=== PATIENT | female | born 1995 | race Caucasian/White ===

== ENCOUNTER → 2017-09-15 | Outpatient (REF) ==
--- NOTE | 2017-09-15 13:37 | Diagnostic Imaging Report ---
PA and lateral views of the chest Indication: Positive TB skin test Findings: The lungs are clear. The heart size is normal. There is no effusion or pneumothorax The mediastinum and jacinta appear unremarkable. Impression: Unremarkable study. Dictated by: Dictated on workstation # [id number]
== END | disposition home or self-care (01) ==
LOC: OCC 13:07
PROVIDERS: ATTEND Nurse Practitioner Family
CPT/HCPCS: 71020

== ENCOUNTER → 2019-06-15 | Outpatient (CLI) | payer BC ==
[~2019-06-15] MED LIST: ASPI-999 PO; CHOL20002 PO; CYCL1DRO OP; DOCU-143 PO; FERR325T18 PO; FLUT9.9S NS; IBUP-1773 PO; LORA10TA76 PO; OXYC1TAB87 PO; PREN1TAB19 PO
--- NOTE | 2019-06-15 10:45 | Diagnostic Imaging Report ---
PROCEDURE: US Gallbladder. TECHNIQUE: Multiple real-time grayscale images were obtained over the right upper quadrant in various projections. INDICATION: Abdominal pain. COMPARISON: None available. FINDINGS: Liver: Normal in size and echotexture. No focal lesion is seen. Appropriate hepatopetal flow is demonstrated in the main portal vein. Gallbladder: Normal. No stones or gallbladder wall thickening. No pericholecystic fluid. Negative sonographic Mccrary's sign. Biliary Tree: No intrahepatic or extrahepatic bile duct dilation is identified. The proximal common duct measures 0.2 cm in diameter. Pancreas: No abnormality in the visualized portions of the pancreas. Right kidney: Normal parenchymal echotexture and thickness. No hydronephrosis, stone or mass. IMPRESSION: Normal right upper quadrant abdominal ultrasound. Dictated by: Dictated on workstation # [id number]
== END ==
LOC: RAD 09:34
PROVIDERS: ATTEND Family Medicine
DX: R10.9 Unspecified abdominal pain (principal)
CPT/HCPCS: 76705

== ENCOUNTER → 2019-06-28 | Outpatient (CLI) | payer BC ==
--- NOTE | 2019-06-28 15:37 | Diagnostic Imaging Report ---
CLINICAL INDICATION: Patient with persistent abdominal pain and stool changes. COMPARISON: Gallbladder ultrasound dated 06/15/2019. PROCEDURE: The patient was administered 4.94 millicuries of technetium-99m Choletec. After 60 minutes of the images, one can of Ensure was given to drink followed by another 60 minutes of imaging. A nuclear medicine hepatobiliary scan with ejection fraction was performed. FINDINGS: There is prompt uptake and excretion of radiotracer by the liver. Activity is visible in the gallbladder by 10 minutes and the small bowel by 10 minutes. Ejection fraction of the gallbladder is calculated at 72% (normal >33%). The gallbladder visibly empties on the scans following the ingestion of Ensure. IMPRESSION: Normal hepatobiliary scan with normal gallbladder ejection fraction. Dictated by: Dictated on workstation # [id number]
== END ==
LOC: CARD 11:33
PROVIDERS: ATTEND Nurse Practitioner Family
DX: R10.9 Unspecified abdominal pain (principal)
CPT/HCPCS: 78227

== ENCOUNTER → 2020-10-29 | Outpatient (CLI) | payer BC, OTHER ==
--- NOTE | 2020-10-29 12:42 | Diagnostic Imaging Report ---
INDICATION: survey. TECHNIQUE: Multiple Real-time grayscale images were obtained over the gravid uterus. COMPARISON: There are no prior studies available for comparison. FINDINGS: There is a single live fetus in transverse presentation. heart motion was noted and a rate of 135 BPM was recorded. There were no abnormalities identified but the four-chamber heart view was less than optimal. A short-term (4-6 week) followup exam would be recommended for further evaluation of the heart. The growth parameters are fairly uniform. The placenta is anterior and there is a marginal previa. The position of the previa could also be reevaluated on the followup exam. The amniotic fluid volume is within normal limits. The cervix measures 9.5 cm in length. IMPRESSION: 1. There is a single live fetus of approximately 20 weeks gestation +/- 1.5 weeks. The EDC is 03/18/2021. 2. There were no abnormalities identified but the four-chamber heart view was less than optimal. A short-term followup exam would be recommended for further evaluation of the heart and for the position of the marginal anterior placenta previa. 3. The growth parameters are fairly uniform. Biometrical measurements are as follows: Biparietal 4.33 cm, age 19 weeks 1 days. Head circumference 16.61 cm, age 19 weeks 3 days. Abdominal circumference 15.06 cm, age 20 weeks 3 days. Femur length 3.38 cm, age 20 weeks 5 days. Sonographic estimate age: 20 weeks 0 days. Sonographic estimated date of delivery: 03/18/2021. Estimated Weight: 343 gm (+/- 50 gm). LMP percentile: 37%. heart rate: 135 beats per minute. number: 1 of 1. Dictated by: Dictated on workstation # [id number]
== END ==
LOC: RAD 09:54
PROVIDERS: ATTEND Obstetrics & Gynecology
DX: Z34.92 Encounter for supervision of normal pregnancy, unspecified, second trimester (principal); Z3A.20 20 weeks gestation of pregnancy
CPT/HCPCS: 76805

== ENCOUNTER 2021-03-05 06:48 | Outpatient (CLI) | payer OTHER ==
[~2021-03-05] VITALS: Ht 167.7 cm; Wt 126.4 kg
[2021-03-05] MEDS ORDERED: LORA10TA76 PO (11:40)
[2021-03-05] MEDS ORDERED: ASPI-999 PO (11:40)
== END 2021-03-05 11:40 | disposition home or self-care (01) ==
LOC: PREOP 06:48
PROVIDERS: ATTEND Obstetrics & Gynecology
DX: Z01.818 Encounter for other preprocedural examination (principal)

== ENCOUNTER 2021-03-09 06:09 | Inpatient (IN) | payer OTHER ==
[2021-03-09] VITALS (9 sets, daily range): BP systolic 123–146; BP diastolic 68–87
[~2021-03-09] VITALS: Ht 67 cm; Wt 126.4 kg
[~2021-03-09 06:09] MED LIST changes: +CITRIC ACID/SOB CIT (BICITRA) 30 ML UDC ONE; +FAMOTIDINE 20MG/2ML IV (PEPCID) ONE; +METOCLOPRAMIDE INJ 10 MG/2 ML (REGLAN) ONE
[2021-03-09] MEDS ORDERED: FAMOTIDINE 20MG/2ML IV (PEPCID) IV ONE (06:15)
[2021-03-09] MEDS ORDERED: METOCLOPRAMIDE INJ 10 MG/2 ML (REGLAN) IV ONE (06:15)
[2021-03-09] MEDS ORDERED: CITRIC ACID/SOB CIT (BICITRA) 30 ML UDC PO ONE (06:15)
[2021-03-09] MEDS ORDERED: ceFAZolin 2 GM IV Premixed 50 ML IV ONE (06:15)
[2021-03-09] MEDS ORDERED: LACTATED RINGERS 1,000 ML IV PRN ×2 (06:15)
[2021-03-09] MEDS ORDERED: KETOROLAC 30 MG/ML VIAL ONE (06:50)
[2021-03-09] MEDS ORDERED: fentaNYL INJ 100 MCG/2 ML AMP ONE (06:50)
[2021-03-09] MEDS ORDERED: OXYTOCIN PRE-MIX DRIP 1,000 ML IV ONE (06:50)
[2021-03-09] MEDS ORDERED: BUPIVACAINE 0.25% 30 ML (SENSORCAINE) VIAL ONE (06:50)
[2021-03-09] MEDS ORDERED: ONDANSETRON 4 MG/2 ML (SDV) Z0FRAN ONE (06:50)
[2021-03-09 07:05] LABS: BASOPHILS % (AUTO) 0 % (0-10); EOSINOPHILS # (AUTO) 0.1 10^3/uL (0.0-0.3); EOSINOPHILS % (AUTO) 1 % (0-10); HEMATOCRIT 39 % (35-52); HEMOGLOBIN 13.5 g/dL (11.5-16.0); LYMPHOCYTES # (AUTO) 2.2 10^3/uL (1.0-4.0); LYMPHOCYTES % (AUTO) 31 % (12-44); MEAN CORPUSCULAR HEMOGLOBIN 33 pg (25-34); MEAN CORPUSCULAR HGB CONC 34 g/dL (32-36); MEAN CORPUSCULAR VOLUME 98 fL (80-99); MEAN PLATELET VOLUME 12.2 fL (9.0-12.2); MONOCYTES # (AUTO) 0.4 10^3/uL (0.0-1.0); MONOCYTES % (AUTO) 5 % (0-12); NEUTROPHILS # (AUTO) 4.5 10^3/uL (1.8-7.8); NEUTROPHILS % (AUTO) 62 % (42-75); PLATELET COUNT 162 10^3/uL (130-400); WHITE BLOOD COUNT 7.2 10^3/uL (4.3-11.0)
--- NOTE | 2021-03-09 07:25 | History & Physical-OB ---
OB - Chief Complaint & HPI Date/Time Date of Admission: Date of Admission: March 09, 2021 at 06:09 Date seen by a Provider: March 09, 2021 Time Seen by a Provider: 07:15 Chief Complaint/History OB-Reason for Admission/Chief: Section Hx : 2 Hx Para: 1 Expected Date of Delivery: March 15, 2021 Gestational Age in Weeks: 39 History of Labs A pos Antibody neg RI RPR NR HBsAg NR HIV NR GC neg GBS pos Allergies and Home Medications Allergies Coded Allergies: No Known Drug Allergies (Unverified , 11/07/17) Home Medications Aspirin 81 Mg Tab.chew, 81 MG PO DAILY, (Reported) Last Action: Reviewed Loratadine 10 Mg Tablet, 10 MG PO DAILY, (Reported) Last Action: Reviewed Vit/Iron Fumarate/FA 1 Each Tablet, 1 EACH PO DAILY, (Reported) Last Action: Reviewed Patient Home Medication List Home Medication List Reviewed: Yes OB - History Hx of Present Care: Yes Ultrasounds: Normal mid trimester US Obstetrical Complications: None Medical Complications: None Delivery History Adverse Rxn to Tranfusion: No Patient Past Medical History see above Immunizations Hepatitis A: Yes Hepatitis B: Yes Tetanus Booster (TDap): Less than 5yrs Date of Influenza Vaccine: Jul 17, 2020 OB - Admission Exam Physical Exam Vitals: Vital Signs 03/09/21 06:56 Temp 36.3 Pulse 66 Resp 18 Pulse Ox 98 O2 Delivery Room Air HEENT: NCAT Lungs: Clear Abdomen: Gravid Extremities: Normal Reflexes: Normal Heart Rate: 130's Accelerations: Accelerations Present Decelerations: No Decelerations Short Term Variability: Present Entry Table Operator Variability: Average (6-25) Contractions on Admission: < 5 Minutes Apart Intensity: Mild Labs Laboratory Tests Test 03/09/21 06:40 Range/Units White Blood Count 7.2 4.3-11.0 10^3/uL Red Blood Count 4.04 3.80-5.11 10^6/uL Hemoglobin 13.5 11.5-16.0 g/dL Hematocrit 39 35-52 % Mean Corpuscular Volume 98 80-99 fL Mean Corpuscular Hemoglobin 33 25-34 pg Mean Corpuscular Hemoglobin Concent 34 32-36 g/dL Red Cell Distribution Width 12.1 10.0-14.5 % Platelet Count 162 130-400 10^3/uL Mean Platelet Volume 12.2 9.0-12.2 fL Immature Granulocyte % (Auto) 0 % Neutrophils (%) (Auto) 62 42-75 % Lymphocytes (%) (Auto) 31 12-44 % Monocytes (%) (Auto) 5 0-12 % Eosinophils (%) (Auto) 1 0-10 % Basophils (%) (Auto) 0 0-10 % Neutrophils # (Auto) 4.5 1.8-7.8 10^3/uL Lymphocytes # (Auto) 2.2 1.0-4.0 10^3/uL Monocytes # (Auto) 0.4 0.0-1.0 10^3/uL Eosinophils # (Auto) 0.1 0.0-0.3 10^3/uL Basophils # (Auto) 0.0 0.0-0.1 10^3/uL Immature Granulocyte # (Auto) 0.0 0.0-0.1 10^3/uL OB - Assessment/Plan/Diagnosis Assessment Assessment: section Admission Dx 25 yo @ 39.1 Previous GBS pos Admission Status: Inpatient Order (span 2 midnights) Reason for Inpatient Admission: 39 week repeat Plan Plan: Section JOSÉ MIGUEL REID DO March 09, 2021 07:24
--- NOTE | 2021-03-09 07:27 | Discharge Inst-Women's Service ---
Discharge Inst-Women's Serv Depart Medication/Instructions New, Converted or Re-Newed RX: RX on Chart Final Diagnosis POD 2 RLTCS Problems Reviewed?: Yes Consults/Follow Up Additional Follow Up: Yes Orders/Referrals Dr. Ryan in 7-10 days for incision check, and in 6 weeks Activity Activity: Activity as Tolerated Driving Instructions: No Driving for 1 Week NO SMOKING: NO SMOKING Nothing Inside Vagina: No Douching, No [place], No Tampons Diet Discharge Diet: No Restrictions Symptoms to Report to : Bleeding Excessive, Pain Increased, Fever Over 101 Degrees F, Vaginal Bleeding Increase, Questions/Concerns For Any Problems or Questions: Contact Your Physician Skin/Wound Care Infection Signs and Symptoms: Increased Redness, Foul Odor of Wound, Increased Drainage, Skin Itchy or Has a Rash, Increased Swelling, Temperature Above 101 F Operative Area Clean and Dry: Keep Incision Clean/Dry Stitches/Mannie/Dermabond: Dermabond, Care of Stitches Bathing Instructions: JOSÉ MIGUEL Wilson DO March 09, 2021 07:27
[2021-03-09] MEDS ORDERED: ACHD5005 PO (07:28)
[2021-03-09] MEDS ORDERED: DCS100C PO (07:28)
[2021-03-09] MEDS ORDERED: IBUP-844 PO (07:28)
[2021-03-09] MEDS ORDERED: ONDANSETRON 4 MG/2 ML (SDV) Z0FRAN IVP PRN ×2 (07:30→09:15)
[2021-03-09] MEDS ORDERED: MEASLES,MUMPS,RUBELLA 1 EA INJ SC SCH (07:30)
[2021-03-09] MEDS ORDERED: TETANUS,DIPTH,PERTUSS P/F (BOOSTRIX) 0.5 ML VIAL IM SCH (07:30)
[2021-03-09] MEDS ORDERED: HYDROcodone/APAP 5 MG/325 MG (LORTAB) TAB PO PRN (07:30)
[2021-03-09] MEDS ORDERED: GLYCOPYRROLATE 0.2 MG/ML (ROBINUL) 2 ML VIAL ONE (07:33)
[2021-03-09] MEDS ORDERED: PHENYLEPHRINE 100 MCG/ML 10 ML (ANESTHESIA) SYR ONE (07:34)
[2021-03-09] MEDS: KETOROLAC 30 MG/ML VIAL IV SCH ×3 (08:28→20:53)
[2021-03-09] MEDS: OXYTOCIN PRE-MIX DRIP 500 ML IV SCH ×2 (08:30→11:19)
[2021-03-09] MEDS ORDERED: diphenhydrAMINE 50 MG/ML INJ (BENADRYL) IV PRN (09:15)
[2021-03-09] MEDS ORDERED: METOCLOPRAMIDE INJ 10 MG/2 ML (REGLAN) IV PRN (09:15)
[2021-03-09] MEDS ORDERED: ONDANSETRON 4 MG/2 ML (SDV) Z0FRAN IV PRN (09:15)
[2021-03-09] MEDS ORDERED: PROMETHAZINE INJ 25 MG/ML (PHENERGAN) AMP IVP ONE (09:15)
[2021-03-09] MEDS ORDERED: morphine INJ 10 MG/ML 1ML (SYR OR VIAL) IVP ONE (09:15)
[2021-03-09] MEDS ORDERED: NALOXONE 0.4 MG/ML 1 ML (NARCAN) VIAL IV PRN ×2 (09:15)
--- NOTE | 2021-03-09 13:35 | OPERATIVE REPORT ---
DATE OF SERVICE: PREOPERATIVE DIAGNOSES: 1. A 25-year-old G2, P1 at 39 weeks gestation. 2. Previous section. 3. GBS positive. POSTOPERATIVE DIAGNOSES: 1. A 25-year-old G2, P1 at 39 weeks gestation. 2. Previous section. 3. GBS positive. PROCEDURE: Repeat low transverse section. SURGEON: Robert Reid DO TELEPHONE SWITCHBOARD OPERATOR: Sabrina Fletcher DNP, was necessary for manipulation and retraction throughout the procedure. ANESTHESIA: Spinal. ESTIMATED BLOOD LOSS: 500 mL. URINE OUTPUT: 50 mL clear at the end of the procedure. FLUIDS: 1700 mL lactated Ringer's solution. FINDINGS: A live female weighing 7 pounds 8 ounces, Apgars of 8 and 9. Grossly normal appearing uterus, bilateral fallopian tubes and ovaries. SPECIMEN SENT: None. INDICATIONS FOR PROCEDURE: This 25-year-old female is a patient, who had sought care in my office that had been uncomplicated with the exception of gestational hypertension with the first . She was started on baby aspirin throughout the . We planned for repeat at 39 weeks. Risks of procedure were discussed with the patient in detail including risk of bleeding, infection, damage to surrounding structures including, but not limited to bowel, bladder, ureter, kidneys, possible need for reoperation, postoperative complications that may occur, recovery timeframe, risk from anesthesia and even . After everything was discussed with the patient in detail, consent was obtained in the preoperative area and the patient was taken to the operating room. OPERATIVE REPORT IN DETAIL: Once in the operating room, spinal analgesia was found to be adequate, placed in supine position with leftward tilt, prepped and draped in normal sterile fashion. Timeout was performed and anesthesia was tested. I then make a Pfannenstiel skin incision through the previously existing scar using knife and carried down to underlying fascia using Bovie cautery. Superior aspect of fascial incision was then grasped with Gavin clamps, tented up and dissected off the underlying rectus muscle. Inferior aspect of the fascial incision was then grasped with Gavin clamps, tented up and dissected off the underlying rectus muscles. Rectus muscles were dissected down the midline using [place] scissors, which exposed the peritoneum, which I entered bluntly and extended using blunt traction. Boogie ring retractor was placed in the peritoneal incision, which offers excellent lateral sidewall retraction. I identified the lower uterine segment, which was found to be thinned out and make a low transverse incision to the vesicouterine peritoneum and bluntly dissected off the lower uterine segment, creating a bladder flap. I then proceeded with myotomy until membranes were visualized, at which point I extended the uterine incision laterally and superiorly using bandage scissors. Amniotomy was performed in the process of doing this, clear fluid was noted. was found in the complete breech presentation and feet were delivered through the incision up to the buttocks, the upper torso was then delivered and the was placed in the downward facing position where the arms were swept across the chest, delivered the arms and then elevating the infant's body. I am able to deliver the infant's head by flexion and through the incision. The nares and oropharynx were bulb suctioned. The was then brought to the operative field, where the cord was doubly clamped and cut and infant handed off to waiting nurses in attendance. Cord blood was collected. Three-vessel cord with intact placenta was delivered spontaneously thereafter. IV Pitocin was initiated to facilitate uterine contraction. Uterine fundus confirmed by manual massage. Uterus was then exteriorized and cleared of all endometrial clots and debris. I then proceeded with closing the uterine incision using 0 Vicryl suture in running locked fashion. Second layer of imbricating 0 Monocryl was placed. Excellent hemostasis was noted after doing this. I then placed the uterus back in the pelvis, copiously irrigated the pelvis using normal saline. There was no active bleeding noted from any of my dissection planes. I removed the Boogie ring retractor and placed Interceed antiadhesive over my low transverse incision to prevent postoperative adhesion formation. I then proceeded with closing the peritoneum using 3-0 Vicryl suture in running fashion. Rectus muscle reapproximated using 3-0 Vicryl suture in interrupted fashion. The fascia was reapproximated using 0 Vicryl suture in running fashion. Subcutaneous tissue was reapproximated using 3-0 plain interrupted subcutaneous stitch and the skin reapproximated using 4-0 Monocryl running subcuticular. Dermabond was applied to incision and sterile dressing with adhesive white tape. Two grams of Ancef given preoperatively for infection prophylaxis. Job ID: [id number] DocumentID: [id number] Dictated Date: 03/09/2021 08:43:17 Opener Tender Date: 03/09/2021 13:35:39 Dictated By: ROBERT REID DO
[2021-03-09] MEDS ORDERED: CATHETER FLUSH 10 ML SYR IV SCH (14:00)
[2021-03-09] MEDS: ACETAMINOPHEN 500 MG TAB (TYLENOL) PO PRN (18:28)
[2021-03-09] MEDS: DOCUSATE SODIUM 100 MG (COLACE) CAP PO SCH (20:53)
[2021-03-10] MEDS: ACETAMINOPHEN 500 MG TAB (TYLENOL) PO PRN ×2 (00:03→05:48)
[2021-03-10 01:19] VITALS: BP 136/64
[2021-03-10] MEDS: KETOROLAC 30 MG/ML VIAL IV SCH (03:00)
[2021-03-10 05:51] VITALS: BP 137/77
[2021-03-10 06:02] LABS: BASOPHILS % (AUTO) 0 % (0-10); EOSINOPHILS # (AUTO) 0.1 10^3/uL (0.0-0.3); EOSINOPHILS % (AUTO) 1 % (0-10); HEMATOCRIT 30 % (35-52); HEMOGLOBIN 10.1 g/dL (11.5-16.0); LYMPHOCYTES # (AUTO) 1.6 10^3/uL (1.0-4.0); LYMPHOCYTES % (AUTO) 17 % (12-44); MEAN CORPUSCULAR HEMOGLOBIN 33 pg (25-34); MEAN CORPUSCULAR HGB CONC 34 g/dL (32-36); MEAN CORPUSCULAR VOLUME 97 fL (80-99); MEAN PLATELET VOLUME 11.8 fL (9.0-12.2); MONOCYTES # (AUTO) 0.3 10^3/uL (0.0-1.0); MONOCYTES % (AUTO) 4 % (0-12); NEUTROPHILS # (AUTO) 7.6 10^3/uL (1.8-7.8); NEUTROPHILS % (AUTO) 78 % (42-75); PLATELET COUNT 135 10^3/uL (130-400); WHITE BLOOD COUNT 9.7 10^3/uL (4.3-11.0)
[2021-03-10] MEDS ORDERED: IBUPROFEN 600 MG (MOTRIN) TAB PO ONE ×2 (07:38→14:42)
[2021-03-10 08:00] VITALS: BP 132/79
--- NOTE | 2021-03-10 08:22 | Postpartum Progress Note ---
Note Note Day # 1 Subjective: Patient is without complaints. Ambulating, voiding. Tolerating a regular diet without nausea or vomiting. Normal lochia. Pain is well controlled with oral pain medications. Objective: Physical Exam: General - Alert and oriented, no apparent distress Abdomen - Soft, appropriately tender to palpation, non-distended, fundus firm at umbilicus Extremities - no edema, negative Silvana's bilaterally Incision- c/d/i Assessment: POD 1 RLTCS Acute blood loss anemia Plan: Routine care. Encourage breast feeding. Encourage ambulation. Ferrous sulfate supplementation. Plan for discharge tomorrow Vitals - Labs Vital Signs - I&O Vital Signs Date Time Temp Pulse Resp B/P (MAP) Pulse Ox O2 Delivery O2 Flow Rate FiO2 03/10/21 05:51 36.7 85 18 137/77 (97) 95 Room Air 03/10/21 01:19 36.3 73 18 136/64 (88) 96 Room Air 03/09/21 20:57 36.1 80 18 137/72 (93) 98 Room Air 03/09/21 16:19 36.0 63 18 143/74 (97) 99 Room Air 03/09/21 15:18 Room Air 03/09/21 13:02 36.7 65 18 139/75 (96) 98 Room Air 03/09/21 09:40 36.4 18 123/68 (86) 99 Room Air 03/09/21 09:40 Room Air 03/09/21 09:40 36.4 92 18 123/68 (86) 99 Room Air 03/09/21 09:28 35.7 16 133/81 (98) 99 Room Air 03/09/21 09:28 Room Air 03/09/21 09:05 Room Air 03/09/21 09:05 36.2 16 141/84 (103) 99 Room Air 03/09/21 08:55 36.3 16 137/84 (101) 100 Room Air 03/09/21 08:55 Room Air I & O 03/10/21 07:00 Intake Total 550 ml Output Total 550 ml Balance 0 ml Labs Laboratory Tests 03/10/21 05:45: White Blood Count 9.7, Red Blood Count 3.05L, Hemoglobin 10.1#L, Hematocrit 30L, Mean Corpuscular Volume 97, Mean Corpuscular Hemoglobin 33, Mean Corpuscular Hemoglobin Concent 34, Red Cell Distribution Width 12.1, Platelet Count 135, Mean Platelet Volume 11.8, Immature Granulocyte % (Auto) 0, Neutrophils (%) (Auto) 78H, Lymphocytes (%) (Auto) 17, Monocytes (%) (Auto) 4, Eosinophils (%) (Auto) 1, Basophils (%) (Auto) 0, Neutrophils # (Auto) 7.6, Lymphocytes # (Auto) 1.6, Monocytes # (Auto) 0.3, Eosinophils # (Auto) 0.1, Basophils # (Auto) 0.0, Immature Granulocyte # (Auto) 0.0 Microbiology 03/09/21 MRSA Screen - Final, Complete MRSA not isolated JOSÉ MIGUEL REID DO March 10, 2021 08:22
--- NOTE | 2021-03-10 08:41 | Anesthesia-Regional Post-Op ---
Regional Patient Condition Mental Status: Alert, Oriented x3 Circulation: Same as Pre-Op Headache: Absent Sensation: Full Recovery Motor Block: Absent Post Op Complications Complications None Follow Up Care/Instructions Patient Instructions None needed. Anesthesia/Patient Condition Patient is doing well, no complaints, stable vital signs, no apparent adverse anesthesia problems. No complications reported per nursing. VIGNESH SUTTON CRNA March 10, 2021 08:41
[2021-03-10] MEDS: IBUPROFEN 600 MG (MOTRIN) TAB PO SCH ×2 (08:49→14:51)
[2021-03-10] MEDS: DOCUSATE SODIUM 100 MG (COLACE) CAP PO SCH (08:50)
[2021-03-10] MEDS ORDERED: SIMETHICONE 80 MG (MYLICON) CHEW ONE (14:59)
[2021-03-10 15:00] VITALS: BP 132/83
[2021-03-10] MEDS ORDERED: SIMETHICONE 80 MG (MYLICON) CHEW PO PRN (15:15)
[2021-03-10 18:00] VITALS: BP 132/83
== END 2021-03-10 18:00 | disposition home or self-care (01) | DRG 787 ==
LOC: LDRP 06:09
PROVIDERS: ADMIT Obstetrics & Gynecology; ATTEND Obstetrics & Gynecology
PROC: 10D00Z1 Extraction of Products of Conception, Low, Open Approach (ICD-10-PCS; principal; 2021-03-09 07:20)
DX: O34.211 Maternal care for low transverse scar from previous cesarean delivery (principal); D62 Acute posthemorrhagic anemia; O64.1XX0 Obstructed labor due to breech presentation, not applicable or unspecified; Z3A.39 39 weeks gestation of pregnancy; Z37.0 Single live birth; O90.81 Anemia of the puerperium; O99.824 Streptococcus B carrier state complicating childbirth; Z79.82 Long term (current) use of aspirin
CPT/HCPCS: 36415; 85025; 86850; 86900; 86901; 87081; 94664

== ENCOUNTER → 2023-03-18 | Outpatient (CLI) | payer OTHER ==
[~2023-03-18] MED LIST changes: +ACHD5005 PO; -CITRIC ACID/SOB CIT (BICITRA) 30 ML UDC ONE; +DOCU-239 PO; -FAMOTIDINE 20MG/2ML IV (PEPCID) ONE; +IBUP-844 PO; -METOCLOPRAMIDE INJ 10 MG/2 ML (REGLAN) ONE; +THYR60TA27 PO; +THYROID
[2023-03-18 11:24] LABS: URINE CREATININE FOR RATIO 27 MG/DL (30-125)
[2023-03-18 11:25] LABS: URINE PROTEIN FOR RATIO ONLY < 6 MG/DL (6-12)
== END ==
LOC: LABNPT 11:03
PROVIDERS: ATTEND Obstetrics & Gynecology
DX: O13.9 Gestational [pregnancy-induced] hypertension without significant proteinuria, unspecified trimester (principal); Z3A.00 Weeks of gestation of pregnancy not specified
CPT/HCPCS: 82570; 84156

== ENCOUNTER 2023-03-21 05:40 | Outpatient (CLI) | payer OTHER ==
[~2023-03-21] VITALS: Ht 167.7 cm; Wt 123.2 kg
[~2023-03-21 05:40] MED LIST changes: -THYR60TA27 PO; -THYROID
[2023-03-21] MEDS ORDERED: THYROID (12:43)
[2023-03-21] MEDS ORDERED: ASPI-999 PO (12:43)
[2023-03-21] MEDS ORDERED: CYCL1DRO OP (12:43)
[2023-03-21] MEDS ORDERED: THYR60TA27 PO (12:48)
== END 2023-03-21 12:52 | disposition home or self-care (01) ==
LOC: PREOP 05:40
PROVIDERS: ATTEND Obstetrics & Gynecology
DX: Z01.818 Encounter for other preprocedural examination (principal)

== ENCOUNTER 2023-03-28 00:41 | Inpatient (IN) | payer OTHER ==
[~2023-03-28] VITALS: Ht 167.7 cm; Wt 123.0 kg
[2023-03-28] VITALS (10 sets, daily range): BP systolic 88–141; BP diastolic 60–91
[~2023-03-28 00:41] MED LIST changes: +THYR60TA27 PO; +THYROID
[2023-03-28] MEDS ORDERED: CITRIC ACID/SOB CIT (BICITRA) 30 ML UDC PO ONE (10:15)
[2023-03-28] MEDS ORDERED: LACTATED RINGERS 1,000 ML IV PRN (10:15)
[2023-03-28] MEDS ORDERED: ceFAZolin INJECTION 2,000 MG in NS (IVPB) 50 ML IV ONE (10:15)
[2023-03-28] MEDS ORDERED: METOCLOPRAMIDE INJ 10 MG/2 ML (REGLAN) IV ONE (10:15)
[2023-03-28] MEDS ORDERED: FAMOTIDINE 20MG/2ML IV (PEPCID) IV ONE (10:15)
[2023-03-28] MEDS: LACTATED RINGERS 1,000 ML IV PRN ×2 (10:30→12:55)
[2023-03-28 10:35] LABS: BASOPHILS % (AUTO) 0 % (0-10); EOSINOPHILS # (AUTO) 0.1 10^3/uL (0.0-0.3); EOSINOPHILS % (AUTO) 1 % (0-10); HEMATOCRIT 36 % (35-52); HEMOGLOBIN 12.7 g/dL (11.5-16.0); LYMPHOCYTES % (AUTO) 29 % (12-44); MEAN CORPUSCULAR HEMOGLOBIN 33 pg (25-34); MEAN CORPUSCULAR HGB CONC 35 g/dL (32-36); MEAN CORPUSCULAR VOLUME 93 fL (80-99); MEAN PLATELET VOLUME 11.7 fL (9.0-12.2); MONOCYTES # (AUTO) 0.4 10^3/uL (0.0-1.0); MONOCYTES % (AUTO) 5 % (0-12); NEUTROPHILS # (AUTO) 4.5 10^3/uL (1.8-7.8); NEUTROPHILS % (AUTO) 64 % (42-75); PLATELET COUNT 156 10^3/uL (130-400)
[2023-03-28] MEDS ORDERED: fentaNYL INJ 100 MCG/2 ML AMP ONE (11:55)
[2023-03-28] MEDS ORDERED: OXYTOCIN PRE-MIX DRIP 1,000 ML IV ONE (11:55)
[2023-03-28] MEDS ORDERED: TETANUS,DIPTH,PERTUSS P/F (BOOSTRIX) 0.5 ML VIAL IM SCH (12:15)
[2023-03-28] MEDS ORDERED: HYDROcodone/APAP 5 MG/325 MG (LORTAB) TAB PO PRN (12:15)
[2023-03-28] MEDS ORDERED: NALOXONE 0.4 MG/ML 1 ML (NARCAN) VIAL IV PRN (12:15)
[2023-03-28] MEDS ORDERED: MEASLES,MUMPS,RUBELLA 1 EA INJ SC SCH (12:15)
[2023-03-28] MEDS ORDERED: KETOROLAC 30 MG/ML VIAL IV SCH (12:15)
[2023-03-28] MEDS ORDERED: ONDANSETRON 4 MG/2 ML (SDV) Z0FRAN IVP PRN (12:15)
[2023-03-28] MEDS ORDERED: OXYTOCIN PRE-MIX DRIP 500 ML IV SCH (12:15)
[2023-03-28] MEDS ORDERED: BISACODYL 10 MG SUPP (DULCOLAX) PR PRN (12:15)
--- NOTE | 2023-03-28 12:19 | History & Physical-OB ---
OB - Chief Complaint & HPI Date/Time Date of Admission: Date of Admission: Mar 28, 2023 at 09:55 Date seen by a Provider: Mar 28, 2023 Time Seen by a Provider: 12:05 Chief Complaint/History OB-Reason for Admission/Chief: Section Hx : 3 Hx Para: 2 Expected Date of Delivery: Apr 10, 2023 Gestational Age in Weeks: 38 Gestational Age in Days: 1 Indication for : desires repeat Admission Nurse Assessment Rev: Yes History of Labs see PNL Allergies and Home Medications Allergies Coded Allergies: No Known Drug Allergies (Unverified , 03/21/23) Patient Home Medication List Home Medication List Reviewed: Yes Aspirin (Aspirin) 81 Mg Tab.chew, 81 MG PO UD, (Reported) Entered as Reported by: YESIKA PORTER on 03/21/231242 Last Action: Reviewed Cyclosporine (Restasis) 0.05 % [place], 1 EACH OP UD, (Reported) Entered as Reported by: YESIKA PORTER on 03/21/231242 Last Action: Reviewed Vit/Iron Fumarate/FA ( Vitamins Tablet) 1 Each Tablet, 1 EACH PO DAILY, (Reported) Entered as Reported by: AYDEN ABDUL on 02/06/17 0014 Last Action: Reviewed Thyroid,Pork (Bowling Pin Refinisher Thyroid) 60 Mg Tablet, 60 MG PO DAILY, (Reported) Entered as Reported by: YESIKA PORTER on 03/21/23 124 Last Action: Reviewed Discontinued Medications Docusate Sodium (Dok) 100 Mg Capsule, 100 MG PO BID PRN for CONSTIPATION-1ST LINE Discontinued Reason: No Longer Taking Prescribed by: JOSÉ MIGUEL REID on 03/09/21727 Hydrocodone Bit/Acetaminophen (HYDROcodone/APAP 5 MG/325 MG TAB) 1 Tab Tab, 1-2 EA PO Q6H PRN for PAIN-MODERATE (5-7) Discontinued Reason: No Longer Taking Prescribed by: JOSÉ MIGUEL REID on 03/09/21727 Ibuprofen (Ibu) 600 Mg Tablet, 600 MG PO Q6HR Discontinued Reason: No Longer Taking Prescribed by: JOSÉ MIGUEL REID on 03/09/21727 Loratadine (Claritin) 10 Mg Tablet, 10 MG PO DAILY, (Reported) Discontinued Reason: No Longer Taking Entered as Reported by: GREG FORD on 03/05/21 1140 [Thyroid] , (Reported) Discontinued Reason: No Longer Taking Entered as Reported by: YESIKA PORTER on 03/21/23 1243 OB - History Hx of Present Care: Yes Ultrasounds: Normal mid trimester US Obstetrical Complications: Other (Abnormal NIPT, oligohydramnios) Medical Complications: None Delivery History Adverse Rxn to Tranfusion: No Patient Past Medical History see above Social History/Family History 2nd Hand Smoke Exposure: No Immunizations Influenza Vaccine Up-to-Date: Yes; Up-to-Date First/Initial COVID19 Vaccine: 2020 Second COVID19 Vaccination: 2020 Hepatitis A: Yes Hepatitis B: Yes Tetanus Booster (TDap): Less than 5yrs OB - Admission Exam Physical Exam HEENT: NCAT Heart: Rhythm Normal Lungs: Clear Abdomen: Gravid Extremities: Normal Reflexes: Normal Heart Rate: 130's Accelerations: Accelerations Present Decelerations: No Decelerations Short Term Variability: Present Custodial Variability: Average (6-25) Contractions on Admission: 6-10 Minutes Apart Intensity: Mild Labs Laboratory Tests Test 03/28/23 10:22 Range/Units White Blood Count 7.0 4.3-11.0 10^3/uL Red Blood Count 3.91 3.80-5.11 10^6/uL Hemoglobin 12.7 11.5-16.0 g/dL Hematocrit 36 35-52 % Mean Corpuscular Volume 93 80-99 fL Mean Corpuscular Hemoglobin 33 25-34 pg Mean Corpuscular Hemoglobin Concent 35 32-36 g/dL Red Cell Distribution Width 12.3 10.0-14.5 % Platelet Count 156 130-400 10^3/uL Mean Platelet Volume 11.7 9.0-12.2 fL Immature Granulocyte % (Auto) 0 % Neutrophils (%) (Auto) 64 42-75 % Lymphocytes (%) (Auto) 29 12-44 % Monocytes (%) (Auto) 5 0-12 % Eosinophils (%) (Auto) 1 0-10 % Basophils (%) (Auto) 0 0-10 % Neutrophils # (Auto) 4.5 1.8-7.8 10^3/uL Lymphocytes # (Auto) 2.0 1.0-4.0 10^3/uL Monocytes # (Auto) 0.4 0.0-1.0 10^3/uL Eosinophils # (Auto) 0.1 0.0-0.3 10^3/uL Basophils # (Auto) 0.0 0.0-0.1 10^3/uL Immature Granulocyte # (Auto) 0.0 0.0-0.1 10^3/uL OB - Assessment/Plan/Diagnosis Assessment Assessment: section Admission Dx 27 yo @ 38 weeks Previous x 2 Abnormal NIPT GBS pos Admission Status: Inpatient Order (span 2 midnights) Reason for Inpatient Admission: section 38 weeks Plan Plan: Section JOSÉ MIGUEL REID DO Mar 28, 2023 12:19
--- NOTE | 2023-03-28 12:20 | Discharge Inst-Women's Service ---
Discharge Inst-Women's Serv Depart Medication/Instructions New, Converted or Re-Newed RX: Transmitted to Pharmacy Final Diagnosis POD 2 RLTCS Problems Reviewed?: Yes Consults/Follow Up Additional Follow Up: Yes Orders/Referrals Dr. Ryan in 7-10 days and in 6 weeks Activity Activity: Activity as Tolerated Driving Instructions: No Driving for 1 Week NO SMOKING: NO SMOKING Nothing Inside Vagina: No Douching, No [place], No Tampons Diet Discharge Diet: No Restrictions Symptoms to Report to : Bleeding Excessive, Pain Increased, Fever Over 101 Degrees F, Vaginal Bleeding Increase, Questions/Concerns For Any Problems or Questions: Contact Your Physician Skin/Wound Care Infection Signs and Symptoms: Increased Redness, Foul Odor of Wound, Increased Drainage, Skin Itchy or Has a Rash, Increased Swelling, Temperature Above 101 F Operative Area Clean and Dry: Keep Incision Clean/Dry Stitches/[place]unice/Dermabond: Dermabond, Care of Stitches Bathing Instructions: JOSÉ MIGUEL Wilson DO Mar 28, 2023 12:20
[2023-03-28] MEDS ORDERED: DOCU100C37 PO (12:21)
[2023-03-28] MEDS ORDERED: IBUP-844 PO (12:21)
[2023-03-28] MEDS ORDERED: ACHD5005 PO (12:21)
[2023-03-28] MEDS ORDERED: BUPIVACAINE 0.5% 30 ML (SENSORCAINE) VIAL ONE (13:08)
[2023-03-28] MEDS ORDERED: PHENYLEPHRINE 100 MCG/ML 10 ML (ANESTHESIA) SYR ONE (13:08)
[2023-03-28] MEDS ORDERED: CATHETER FLUSH 10 ML SYR IV SCH (14:00)
[2023-03-28] MEDS ORDERED: SIMETHICONE 80 MG (MYLICON) CHEW ONE (20:36)
[2023-03-28] MEDS ORDERED: KETOROLAC 30 MG/ML VIAL ONE (20:36)
[2023-03-28] MEDS: CATHETER FLUSH 10 ML SYR IV PRN (20:40)
[2023-03-28] MEDS: KETOROLAC 30 MG/ML VIAL IV SCH (20:40)
[2023-03-28] MEDS: SIMETHICONE 80 MG (MYLICON) CHEW PO SCH (20:41)
[2023-03-28] MEDS: DOCUSATE SODIUM 100 MG (COLACE) CAP PO SCH (20:41)
--- NOTE | 2023-03-28 22:31 | OPERATIVE REPORT ---
PREOPERATIVE DIAGNOSES: 1. A 27-year-old G3, P2 at 38 weeks' gestation. 2. Previous section. POSTOPERATIVE DIAGNOSES: 1. A 27-year-old G3, P2 at 38 weeks' gestation. 2. Previous section. PROCEDURE: Repeat low transverse section. SURGEON: Robert Reid DO. CHURN DRILL OPERATOR: Sabrina Fletcher DNP was necessary for manipulation and retraction throughout the procedure. ANESTHESIA: Spinal. ESTIMATED BLOOD LOSS: 500 mL URINE OUTPUT: 50 mL clear at the end of the procedure. FLUIDS: 1800 mL lactated Ringer's solution. FINDINGS: A live female , weighing 6 pounds 13 ounces, Apgars of 9 and 9. Grossly normal appearing uterus, bilateral fallopian tubes and ovaries. SPECIMEN SENT: Placenta. INDICATIONS FOR PROCEDURE: This 27-year-old female was a patient who was brought in for delivery at 38 weeks via repeat due to prior and gestational hypertension as well as a history of abnormal noninvasive testing. I discussed with the patient risks of the procedure as well as risk of 38 weeks after all of her questions were answered, she was agreeable to proceed. Consent was obtained in the preoperative area and the patient was taken to the operating room. OPERATIVE REPORT IN DETAIL: Once in the operating room, anesthesia was found to be adequate. She was placed in the supine position with leftward tilt, prepped and draped in normal sterile fashion. Timeout was performed. Anesthesia was tested and then made a Pfannenstiel skin incision through a preexisting scar using knife and carried to underlying fascia using Bovie cautery. The fascial incision extended laterally using Bovie cautery. Superior aspect of fascial incision was then grasped with Gavin clamps, tented upward, and dissected off the underlying rectus muscles. The inferior aspect of the fascial incision was then grasped with Gavin clamps, tented up and dissected off the underlying rectus muscles. Rectus muscle dissected down the midline using blunt dissection, which exposed the peritoneum, which I entered bluntly and extended using blunt dissection. Boogie ring retractor was placed in the peritoneal incision, which offers excellent lateral sidewall retraction. I identified lower uterine segment was found to be thinned out and make a low transverse incision to the vesicouterine peritoneum and bluntly dissected off the lower uterine segment, creating a bladder flap. I then proceeded with my myotomy until membranes were visualized, at which point I extended the uterine incision laterally and superiorly using bandage scissors. Amniotomy was performed in the process of doing this, clear fluid was noted. The was found in the skip breech presentation. The feet are grasped and delivered through the incision up to the buttocks and then the lower abdomen and upper abdomen. The was then rotated to be facing downward. I then delivered the arms by sweeping them across the chest and elevate the 's body and delivered the head through the incision by using gentle flexion. The nares and oropharynx were then bulb suction. The was brought to the operative field where cords were clamped and cut and infant was handed off to waiting nurses in attendance. Cord blood was collected. Three-vessel cord with intact placenta was delivered spontaneously thereafter. IV Pitocin was initiated to facilitate uterine contraction. Uterine fundus becomes firm with bimanual massage. The uterus was then exteriorized and cleared of all endometrial clots and debris. I then proceeded with closing the uterine incision using 0 Vicryl suture in a running locked fashion. Second layer of imbricating 0 Monocryl was placed. Excellent hemostasis was noted after doing this. I then placed the uterus back in the pelvis and copiously irrigated the pelvis using normal saline. Once again, there was no active bleeding noted from any of my dissection planes. I placed Interceed antiadhesive over my low transverse incision. I removed the Boogie ring retractor and then proceeded with closing the peritoneum using 3-0 Vicryl suture in a running fashion. Rectus muscles were reapproximated using 3-0 Vicryl suture in interrupted fashion. The fascia was reapproximated using 0 Vicryl suture in a running fashion. Subcutaneous tissue was reapproximated with 3-0 plain interrupted subcutaneous stitch and skin was reapproximated using 4-0 Monocryl in a running subcuticular. Dermabond was applied to the incision and sterile dressing with adhesive white tape. The patient tolerated the procedure well and sent to recovery area in stable condition. Lap and sponge counts were correct at the end of the procedure. Instrument counts correct as well. Two grams of Ancef was given preoperatively for infection prophylaxis. Job ID: [id number] DocumentID: [id number] Dictated Date: 03/28/2023 13:38:16 Floor Framer Date: 03/28/2023 22:29:00 Dictated By: ROBERT REID DO
[2023-03-29 03:26] VITALS: BP 133/87
[2023-03-29] MEDS: KETOROLAC 30 MG/ML VIAL IV SCH ×2 (03:26→09:54)
[2023-03-29] MEDS: CATHETER FLUSH 10 ML SYR IV PRN (03:26)
[2023-03-29 06:19] LABS: BASOPHILS # (AUTO) 0.1 10^3/uL (0.0-0.1); BASOPHILS % (AUTO) 1 % (0-10); EOSINOPHILS # (AUTO) 0.2 10^3/uL (0.0-0.3); EOSINOPHILS % (AUTO) 2 % (0-10); HEMATOCRIT 30 % (35-52); HEMOGLOBIN 10.4 g/dL (11.5-16.0); LYMPHOCYTES # (AUTO) 2.2 10^3/uL (1.0-4.0); LYMPHOCYTES % (AUTO) 22 % (12-44); MEAN CORPUSCULAR HEMOGLOBIN 33 pg (25-34); MEAN CORPUSCULAR HGB CONC 34 g/dL (32-36); MEAN CORPUSCULAR VOLUME 95 fL (80-99); MEAN PLATELET VOLUME 12.2 fL (9.0-12.2); MONOCYTES # (AUTO) 0.5 10^3/uL (0.0-1.0); MONOCYTES % (AUTO) 5 % (0-12); NEUTROPHILS % (AUTO) 71 % (42-75); PLATELET COUNT 130 10^3/uL (130-400)
--- NOTE | 2023-03-29 07:59 | Postpartum Progress Note ---
Note Note Day #1 Subjective: Patient is without complaints. Ambulating, voiding. Tolerating a regular diet without nausea or vomiting. Normal lochia. Pain is well controlled with oral pain medications.Patient is breast-feeding. Patient would like to be discharged home today. Objective: [] Physical Exam: General - Alert and oriented, no apparent distress Breast symmetrical no erythema, edema or engorgement. Abdomen - Soft, appropriately tender to palpation, non-distended, fundus firm at umbilicus Incision clean dry intact Lochia minimal Extremities - no edema, negative Silvana's bilaterally Assessment: [] post- day #1, status post section Recovering well, hemodynamically stable Plan: Routine care. Encourage breast feeding. Encourage ambulation. Ferrous sulfate supplementation. Plan for discharge today Vitals - Labs Vital Signs - I&O Vital Signs Date Time Temp Pulse Resp B/P (MAP) Pulse Ox O2 Delivery O2 Flow Rate FiO2 03/29/23 03:26 36.0 76 18 133/87 (102) 96 Room Air 03/28/23 23:45 36.2 74 18 132/90 (104) 96 Room Air 03/28/23 20:40 36.4 76 18 140/91 (107) 98 Room Air 03/28/23 18:35 36.6 60 18 141/79 (99) 100 Room Air 03/28/23 15:17 36.2 49 18 133/62 (85) 100 Room Air 03/28/23 14:17 Room Air 03/28/23 14:14 18 119/75 (90) 99 Room Air 03/28/23 14:06 35.7 18 123/79 (94) 99 Room Air 03/28/23 14:06 Room Air 03/28/23 13:51 35.9 18 112/60 (77) 100 Room Air 03/28/23 13:51 Room Air 03/28/23 13:36 Room Air 03/28/23 13:36 36.2 18 126/83 (97) 99 Room Air 03/28/23 13:21 Room Air 03/28/23 13:21 36.4 18 88/61 (70) 97 Room Air 03/28/23 10:18 36.5 81 18 97 Room Air I & O 03/29/23 07:00 Intake Total 2350 ml Output Total 1250 ml Balance 1100 ml Labs Laboratory Tests 03/28/23 10:22: White Blood Count 7.0, Red Blood Count 3.91, Hemoglobin 12.7, Hematocrit 36, Mean Corpuscular Volume 93, Mean Corpuscular Hemoglobin 33, Mean Corpuscular Hemoglobin Concent 35, Red Cell Distribution Width 12.3, Platelet Count 156, Mean Platelet Volume 11.7, Immature Granulocyte % (Auto) 0, Neutrophils (%) (Auto) 64, Lymphocytes (%) (Auto) 29, Monocytes (%) (Auto) 5, Eosinophils (%) (Auto) 1, Basophils (%) (Auto) 0, Neutrophils # (Auto) 4.5, Lymphocytes # (Auto) 2.0, Monocytes # (Auto) 0.4, Eosinophils # (Auto) 0.1, Basophils # (Auto) 0.0, Immature Granulocyte # (Auto) 0.0 03/29/23 05:37: White Blood Count 10.0, Red Blood Count 3.19L, Hemoglobin 10.4L, Hematocrit 30L, Mean Corpuscular Volume 95, Mean Corpuscular Hemoglobin 33, Mean Corpuscular Hemoglobin Concent 34, Red Cell Distribution Width 12.3, Platelet Count 130, Mean Platelet Volume 12.2, Immature Granulocyte % (Auto) 0, Neutrophils (%) (Auto) 71, Lymphocytes (%) (Auto) 22, Monocytes (%) (Auto) 5, Eosinophils (%) (Auto) 2, Basophils (%) (Auto) 1, Neutrophils # (Auto) 7.0, Lymphocytes # (Auto) 2.2, Monocytes # (Auto) 0.5, Eosinophils # (Auto) 0.2, Basophils # (Auto) 0.1, Immature Granulocyte # (Auto) 0.0 ALEXIS PENNINGTON DO Mar 29, 2023 07:59
[2023-03-29 08:45] VITALS: BP 135/71
[2023-03-29] MEDS: DOCUSATE SODIUM 100 MG (COLACE) CAP PO SCH (09:53)
[2023-03-29] MEDS: SIMETHICONE 80 MG (MYLICON) CHEW PO SCH (09:53)
--- NOTE | 2023-03-29 09:54 | Anesthesia-Regional Post-Op ---
Regional Patient Condition Mental Status: Alert, Oriented x3 Circulation: Same as Pre-Op Headache: Absent Sensation: Full Recovery Motor Block: Absent Post Op Complications Complications None Follow Up Care/Instructions Patient Instructions None needed. Anesthesia/Patient Condition Patient is doing well, no complaints, stable vital signs, no apparent adverse anesthesia problems. No complications reported per nursing. LOUISE CRAFT DO Mar 29, 2023 09:54
[2023-03-29] MEDS ORDERED: IBUPROFEN 600 MG (MOTRIN) TAB PO SCH (12:15)
[2023-03-29 12:35] VITALS: BP 134/90
== END 2023-03-29 14:50 | disposition home or self-care (01) | DRG 787 ==
LOC: LDRP 09:55
PROVIDERS: ADMIT Obstetrics & Gynecology; ATTEND Obstetrics & Gynecology
PROC: 10D00Z1 Extraction of Products of Conception, Low, Open Approach (ICD-10-PCS; principal; 2023-03-28 12:14)
DX: O34.211 Maternal care for low transverse scar from previous cesarean delivery (principal); O41.03X0 Oligohydramnios, third trimester, not applicable or unspecified; Z3A.38 38 weeks gestation of pregnancy; Z37.0 Single live birth; Z79.82 Long term (current) use of aspirin; Z79.899 Other long term (current) drug therapy; O99.824 Streptococcus B carrier state complicating childbirth
CPT/HCPCS: 36415; 85025; 86850; 86900; 86901; 90715